=== PATIENT | male | born 2000 | race Caucasian/White ===

== ENCOUNTER 2022-01-11 21:23 | Emergency (ER) | payer BC | END 2022-01-11 23:40 | disposition home or self-care (01) | LOC: ERS 21:23 | DX: S01.111A Laceration without foreign body of right eyelid and periocular area, initial encounter (principal); Z79.899 Other long term (current) drug therapy; W21.09XA Struck by other hit or thrown ball, initial encounter | CPT/HCPCS: 99282 ==